=== PATIENT | female | born 1965 | race Caucasian/White ===

== ENCOUNTER 2018-03-28 19:53 | Observation (INO) ==
[2018-03-28 20:20] LABS: Bilirubin,Urine Negative (Negative); Blood,Urine Negative (Negative); Clarity,Urine Clear (Clear); Color,Urine Yellow (Yellow); Glucose,Urine (UA) Normal (Normal); Ketones,Urine Negative (Negative); Leukocyte Esterase,Urine Small (Negative); Nitrite,Urine Negative (Negative); Protein,Urine Negative (Neg-Trace); Urobilinogen,Urine Normal (Normal)
[2018-03-28 20:26] LABS: Bacteria,Urine Few per hpf (None-Few); Squamous Epithelial Cell,Urine Few per lpf (None-Few)
--- NOTE | 2018-03-28 20:38 | Emergency Department Note ---
Disposition Clinical Impression: Abdominal pain Qualifiers: Abdominal location: right upper quadrant Qualified Code(s): R10.11 - Right upper quadrant pain Disposition: Admitted As Inpatient Time of Disposition: 22:43 Abdominal Pain HPI - General Chief Complaint: ED Abdominal Pain Stated Complaint: Abd Pain Time Seen by Provider: 03/28/18 20:34 Source: patient, family Mode of arrival: ambulatory Limitations: no limitations Nursing Notes Reviewed: Yes Vital Signs Reviewed: Yes - History of Present Illness HPI Narrative: 53-year-old female with right upper quadrant pain present for the past week. This is colicky in nature and worse with fatty foods. She had some fried chicken this afternoon that really set her off, she has had constant severe right upper quadrant pain since that time. No vomiting. No fevers. She does not drink any alcohol. Only medications patient is taking are Hydrochlorothiazide, lisinopril, Flonase Pain Scale: 8 - Related Data Home Medications Medication Instructions Recorded Confirmed Lisinopril [Zestril] 10 mg PO DAILY 11/21/15 11/21/15 hydroCHLOROthiazide 25 mg PO DAILY 11/21/15 11/21/15 [Hydrochlorothiazide] Previous Rx's Medication Instructions Recorded HYDROcodone/Acet 5/325 mg [Hatch 1 tab PO TID #6 tab 11/21/15 5-325 mg] Allergies Allergy/AdvReac Type Severity Reaction Status Date / Time No Known Allergies Allergy Verified 11/21/15 05:59 Constitutional: Denies: fever, chills, weakness, weight change Eyes: Denies: eye pain, eye discharge, vision change ENT ED: Denies: ear pain, throat pain, dental pain, hearing loss, epistaxis, congestion, dysphagia Cardiovascular: Denies: chest pain, palpitations, dyspnea on exertion, edema, syncope Respiratory: Denies: cough, dyspnea, wheezes, hemoptysis, stridor Gastrointestinal: Reports: abdominal pain, nausea. Denies: vomiting, diarrhea, constipation Musculoskeletal: Denies: back pain, neck pain, arthralgia, myalgia Integumentary: Denies: rash, abrasion, lesions Neurological: Denies: headache, weakness, numbness, paresthesias, confusion, abnormal gait, vertigo Psychiatric: Denies: anxiety, depression, suicidal thoughts, homicidal thoughts , auditory hallucinations, visual hallucinations Allergic/Immunologic: Denies: facial swelling, urticaria Abdominal Pain PMH - Past Medical History Medical history: Reports: hypertension Female Surgical History: Reports: , Tonsillectomy, other [employer] history: Reports: bilateral tubal ligation Psychiatric history: Reports: no psych history - Social History Smoking status: Former smoker Alcohol use: Reports: none Drug use: Reports: none Physical Exam - General Limitations: no limitations General appearance: alert, in no apparent distress - Head Head exam: atraumatic, normocephalic, normal inspection - Chest Chest inspection: Present: normal inspection, symmetric chest wall rise - Respiratory Respiratory exam: Present: normal lung sounds bilaterally - Cardiovascular Cardiovascular exam: Present: regular rate, normal rhythm, normal heart sounds - Abdominal Exam Abdominal exam: Present: soft, tenderness. Absent: distention, guarding, rebound, rigidity Abdominal tenderness: Present: RUQ, severe - Extremities Exam Extremities exam: Present: normal inspection, full ROM. Absent: tenderness, pedal edema - Neurological Exam Neurological exam: Present: alert, oriented X3 - Psychiatric Psychiatric exam: Present: normal affect, normal mood - Skin Skin exam: Present: warm, dry, intact, normal color Course Course Narrative: Patient seen and examined at bedside, she is in stable condition - Reevaluation(s) Reevaluation #1: Discussed ultrasound results with patient. These are equivocal. CT abdomen/ pelvis pending. Hospitalist has accepted patient and I spoke with general surgery who will see the patient as well Vital Signs Temperature 97.6 F 03/28/18 20:03 Pulse Rate 72 03/28/18 20:03 Respiratory Rate 16 03/28/18 20:03 Blood Pressure 134/78 03/28/18 20:03 O2 Sat by Pulse Oximetry 98 03/28/18 20:03 Temperature 97.6 F 03/28/18 20:48 Pulse Rate 78 03/28/18 22:22 Respiratory Rate 15 03/28/18 22:22 Blood Pressure 151/81 03/28/18 22:22 O2 Sat by Pulse Oximetry 98 03/28/18 22:22 Oxygen Delivery Oxygen Delivery Room Air Abdominal Pain - MDM Narrative Medical decision making narrative: Exquisite tenderness to palpation right upper quadrant with positive Beaver sign as well. Will check an ultrasound and CT scan to evaluate the pancreas and basic labs as well - Lab Data Lab results reviewed: Yes I reviewed the patient's lab results. Result diagrams: 03/28/18 20:54 03/28/18 20:54 Lab Results 03/28/18 03/28/18 03/28/18 Range/Units 20:09 20:54 20:54 WBC 12.9 H (4.3-11.1) K/mcL RBC 4.52 (3.82-4.97) M/mcL Hgb 13.5 (11.5-15.4) g/dL Hct 39.9 (35.3-44.9) % MCV 88.3 (83.0-100.0) fL MCH 29.9 (28.0-33.3) pg MCHC 33.8 (31.6-35.5) g/dL RDW 14.0 (11.5-14.5) % Plt Count 293 (140-400) K/mcL MPV 11.1 (9.4-12.4) fL Immature Gran % 0.4 (0-4) % Seg Neutrophils % 77.7 % Lymphocytes % 15.5 % Monocytes % 4.9 % Eosinophils % 0.9 % Basophils % 0.6 % Neutrophils # 10.0 H (1.6-8.9) K/mcL Lymphocytes # 2.0 (0.6-4.6) K/mcL Monocytes # 0.6 (0.0-1.3) K/mcL Eosinophils # 0.1 (0.0-0.6) K/mcL Basophils # 0.1 (0.0-0.2) K/mcL Sodium 138 (136-145) mEq/L Potassium 3.5 (3.5-5.1) mEq/L Chloride 98 (98-107) mEq/L Carbon Dioxide 29 (23-29) mEq/L BUN 13 (6-20) mg/dL Creatinine 0.74 (0.60-1.20) mg/dL Est GFR ( Amer) > 60 (> 60) Est GFR (Non-Af Amer) > 60 (> 60) BUN/Creatinine Ratio 18 (6-26) Glucose 152 H (70-105) mg/dL Calculated Osmolality 289 (280-300) Lactic Acid (0.5-2.2) mmol/L Calcium 10.1 (8.6-10.3) mg/dL Total Bilirubin 1.9 H (0.3-1.0) mg/dL Direct Bilirubin 1.1 H (0.0-0.2) mg/dL Indirect Bilirubin 0.8 (0.0-1.2) mg/dL AST 230 H (13-39) Units/L ALT 203 H (7-52) Units/L Alkaline Phosphatase 217 H (34-104) Units/L Serum Total Protein 7.8 (6.4-8.9) g/dL Albumin 4.4 (3.5-5.7) g/dL Globulin 3.4 (2.4-3.5) g/dL Albumin/Globulin Ratio 1.3 (1.1-2.2) Amylase 23 L (29-103) Units/L Lipase 13 (11-82) Units/L Urine Color Yellow (Yellow) Urine Clarity Clear (Clear) Urine pH 7.0 (5.0-8.0) pH Units Ur Specific [place] 1.020 (1.010-1.025) Urine Protein Negative (Neg-Trace) mg/dL Urine Glucose (UA) Normal (Normal) mg/dL Urine Ketones Negative (Negative) mg/dL Urine Blood Negative (Negative) Urine Nitrite Negative (Negative) Urine Bilirubin Negative (Negative) Urine Urobilinogen Normal (Normal) mg/dL Ur Leukocyte Esterase Small H (Negative) Urine Microscopic WBC 5-15 H (0-3) per hpf Ur Squamous Epith Cells Few (None-Few) per lpf Urine Bacteria Few (None-Few) per hpf Ur Culture Indicated? YES A (NO) 03/28/18 Range/Units 20:56 WBC (4.3-11.1) K/mcL RBC (3.82-4.97) M/mcL Hgb (11.5-15.4) g/dL Hct (35.3-44.9) % MCV (83.0-100.0) fL MCH (28.0-33.3) pg MCHC (31.6-35.5) g/dL RDW (11.5-14.5) % Plt Count (140-400) K/mcL MPV (9.4-12.4) fL Immature Gran % (0-4) % Seg Neutrophils % % Lymphocytes % % Monocytes % % Eosinophils % % Basophils % % Neutrophils # (1.6-8.9) K/mcL Lymphocytes # (0.6-4.6) K/mcL Monocytes # (0.0-1.3) K/mcL Eosinophils # (0.0-0.6) K/mcL Basophils # (0.0-0.2) K/mcL Sodium (136-145) mEq/L Potassium (3.5-5.1) mEq/L Chloride (98-107) mEq/L Carbon Dioxide (23-29) mEq/L BUN (6-20) mg/dL Creatinine (0.60-1.20) mg/dL Est GFR ( Amer) (> 60) Est GFR (Non-Af Amer) (> 60) BUN/Creatinine Ratio (6-26) Glucose (70-105) mg/dL Calculated Osmolality (280-300) Lactic Acid 2.1 (0.5-2.2) mmol/L Calcium (8.6-10.3) mg/dL Total Bilirubin (0.3-1.0) mg/dL Direct Bilirubin (0.0-0.2) mg/dL Indirect Bilirubin (0.0-1.2) mg/dL AST (13-39) Units/L ALT (7-52) Units/L Alkaline Phosphatase (34-104) Units/L Serum Total Protein (6.4-8.9) g/dL Albumin (3.5-5.7) g/dL Globulin (2.4-3.5) g/dL Albumin/Globulin Ratio (1.1-2.2) Amylase (29-103) Units/L Lipase (11-82) Units/L Urine Color (Yellow) Urine Clarity (Clear) Urine pH (5.0-8.0) pH Units Ur Specific [place] (1.010-1.025) Urine Protein (Neg-Trace) mg/dL Urine Glucose (UA) (Normal) mg/dL Urine Ketones (Negative) mg/dL Urine Blood (Negative) Urine Nitrite (Negative) Urine Bilirubin (Negative) Urine Urobilinogen (Normal) mg/dL Ur Leukocyte Esterase (Negative) Urine Microscopic WBC (0-3) per hpf Ur Squamous Epith Cells (None-Few) per lpf Urine Bacteria (None-Few) per hpf Ur Culture Indicated? (NO) - Radiology Data Radiology results reviewed: Yes I reviewed the patient's radiology results. Attestation Statement - Attestation Attestation: Patient was seen with resident physician. I reviewed the history, physical, assessment and plan, and agree with the findings. I also personally evaluated this patient and had [id number] time with this patient. 53-year-old female presents with intermittent right upper quadrant abdominal pain for the last several weeks. This became consistent after meal today at approximately 2:00 in the afternoon. She said the pain was severe it as located in the mid epigastrium and the right upper quadrant. Very tender to palpation associate with nausea no vomiting no diarrhea. Denies fevers or chills. She still has her gallbladder or appendix. She says she has not had any abdominal surgeries to this point. Review of systems as above remained reviewed negative. Physical exam vital signs are stable. ENT is unremarkable. Heart and lungs are both normal. Abdomen is soft there is exquisite tenderness in the right upper quadrant with guarding no rigidity. Also tender in the midepigastric area I do not see much in the left upper quadrant and lower quadrants are nontender. Extremities are unremarkable. Neurologically she is intact. Skin no rashes. Psych normal. ED course we will check a CT scan to look at the pancreas but we will also get an ultrasound to make sure that were evaluating the gallbladder appropriately. With pain associated with the medial at certainly is concerning for gallbladder disease. She has not had anything to eat or drink since 3:00 this afternoon so we should be able to get a good study. Ultrasound showed gallstones with possible wall thickening and a suggestion correlate with clinical findings suggestive of inflammation. CT scan essentially confirmed these findings. Patient however had an elevated white blood cell count and elevated LFTs so the concern was that she was early in the development of cholecystitis. We contacted the hospitalist service agreed to accept the patient for admission and we also contacted the surgical service to help facilitate consultation on this patient for further evaluation treatment. Patient was given IV fluids and Toradol, she was nothing by mouth. She was admitted to the hospital. Agree with resident physician assessment and plan.
[2018-03-28] MEDS ORDERED: Ketorolac 15 MG/ML VIAL IVP ONE (21:03)
[2018-03-28 21:06] LABS: Basophils # 0.1 K/mcL (0.0-0.2); Basophils % 0.6 %; Eosinophils # 0.1 K/mcL (0.0-0.6); Eosinophils % 0.9 %; Hematocrit 39.9 % (35.3-44.9); Hemoglobin 13.5 g/dL (11.5-15.4); Immature Granulocytes % 0.4 % (0-4); Lymphocytes % 15.5 %; Mean Corpuscular HGB Conc 33.8 g/dL (31.6-35.5); Mean Corpuscular Hemoglobin 29.9 pg (28.0-33.3); Mean Corpuscular Volume 88.3 fL (83.0-100.0); Mean Platelet Volume 11.1 fL (9.4-12.4); Monocytes # 0.6 K/mcL (0.0-1.3); Monocytes % 4.9 %; Platelet Count 293 K/mcL (140-400); Red Blood Count 4.52 M/mcL (3.82-4.97); Segmented Neutrophils % 77.7 %
[2018-03-28 21:26] LABS: Alanine Aminotransferase 203 Units/L (7-52); Albumin 4.4 g/dL (3.5-5.7); Albumin/Globulin Ratio 1.3 (1.1-2.2); Alkaline Phosphatase 217 Units/L (34-104); Amylase 23 Units/L (29-103); Aspartate Amino Transferase 230 Units/L (13-39); BUN/Creatinine Ratio 18 (6-26); Bilirubin,Direct 1.1 mg/dL (0.0-0.2); Bilirubin,Indirect 0.8 mg/dL (0.0-1.2); Bilirubin,Total 1.9 mg/dL (0.3-1.0); Blood Urea Nitrogen 13 mg/dL (6-20); Calcium 10.1 mg/dL (8.6-10.3); Carbon Dioxide 29 mEq/L (23-29); Chloride 98 mEq/L (98-107); Globulin 3.4 g/dL (2.4-3.5); Glucose 152 mg/dL (70-105); Lipase 13 Units/L (11-82); Osmolality,Calculated 289 (280-300); Potassium 3.5 mEq/L (3.5-5.1); Sodium 138 mEq/L (136-145); Total Protein 7.8 g/dL (6.4-8.9); eGFR For African Americans > 60 (> 60); eGFR For Non-African Americans > 60 (> 60)
[2018-03-28] MEDS ORDERED: 0.9 % Sodium Chloride 1,000 ML IVC ONE (22:07)
[2018-03-28] MEDS ORDERED: Ondansetron 4 MG/2 ML VIAL IVP PRN (22:10)
[2018-03-28] MEDS ORDERED: Naloxone 0.4 MG/ML INJ IVP PRN (22:12)
[2018-03-28] MEDS ORDERED: Acetaminophen 325 MG TABLET PO PRN (22:12)
[2018-03-28 22:56] LABS: Prothrombin Time 11.2 Seconds (9.4-12.1)
--- NOTE | 2018-03-28 23:17 | Internal Med History&Physical ---
Date of Encounter: 03/28/18 Time of Encounter: 23:11 Internal Medicine - H&P: HPI Chief complaint: Abdominal pain Admitted From: Emergency Dept Plans for Post Hospital Care: Home History of present illness: Ms. Negrete is a 53 year old female with history of hypertension who presents to the ED with complaints of right upper quadrant pain that has been going on for about a week or so. Worse with food. It was worse today after she had fried chicken. Describes it as dull pain in the right upper quadrant with radiation to the gastric area. She reports subjective fevers. Feels nauseous. No vomiting. She had significant pain that she felt she was going to pass out a couple of times today. Her brought her to the ED where workup showed elevated liver function test and imaging studies including CT abdomen pelvis and abdominal ultrasound showed cholelithiasis but no evidence of acute cholecystitis. Surgery were contacted by the ET and recommended admission. The patient denies any headache, blurry vision, vomiting, chest pain, shortness of breath, diarrhea, constipation, urinary symptoms, or neurological symptoms. She says she had something similar like this about a couple years ago and was told that her gallbladder was the cause. Past Med Surg Social Fam HX - Past Medical History Medical history: hypertension Psychiatric history: no psych history - Past Surgical History Additional surgical history: ablasion - Social History Smoking Status: Former smoker Smokeless Tobacco Status: No Alcohol use: none Drug use: none Internal Medicine - H&P: Meds Lisinopril [Zestril] 10 mg PO DAILY 11/21/15 [History] hydroCHLOROthiazide [Hydrochlorothiazide] 25 mg PO DAILY 11/21/15 [History] 3 Allergy/AdvReac Type Severity Reaction Status Date / Time No Known Allergies Allergy Verified 11/21/15 05:59 All Systems PM: A 10-system review of systems was performed and is negative for pertinent findings except as documented above in the HPI. Review of systems: All systems reviewed are negative except for special above - Constitutional Vitals: Temp Pulse Resp BP Pulse Ox 97.6 F 86 14 141/88 98 03/28/18 20:48 03/28/18 23:06 03/28/18 23:06 03/28/18 23:06 03/28/18 23:06 Exam: GEN: NAD HEENT: AT, NC, No cyanosis, oral mucosa is moist, No JVD Lymphatics: No lymphadenoapthy Eyes: Extrocular muscles intact, anicteric CVS:RRR. S1, S2, No m/r/g RESP: CTAB ABD: Soft, right upper quadrant tenderness ND, +BS EXT: No edema, No rashes, 2+ DP NEURO: Nonfocal, CN II-XII intact, No focal motor or sensory deficits Psych: Cooperative, Not anxious or depressed Internal Med - H&P Results - Labs CBC & Chem 7: 03/28/18 20:54 03/28/18 20:54 - Assessment and plan (1) Biliary colic Current Visit: Yes Status: Acute Assessment and plan: Admit the patient hospitalist with a consult surgery. Nothing by mouth. Pain control. Antiemetics. IV fluids. Leukocytosis and subjective fevers was started on Zosyn. The highest scan has been ordered for tomorrow. (2) Leukocytosis Current Visit: Yes Status: Acute Assessment and plan: Possibly reactive versus infectious. Plan is as above. IV fluids and IV Zosyn have been started. Qualifiers: Leukocytosis type: unspecified Qualified Code(s): D72.829 - Elevated white blood cell count, unspecified (3) HTN (hypertension) Current Visit: Yes Status: Acute Assessment and plan: Resume home antihypertensives Qualifiers: Hypertension type: essential hypertension Qualified Code(s): I10 - Essential (primary) hypertension (4) DVT prophylaxis Current Visit: Yes Status: Acute Assessment and plan: Heparin subcutaneous - Time Spent With Patient Total time spent is greater than 50% in coordination of care (as documented) at patient's floor/unit and/or counseling patient:
[2018-03-28] MEDS: 0.9 % Sodium Chloride 1,000 ML IVC SCH (23:54)
[2018-03-29] MEDS: Piperacillin/Tazobactam 3.375 GM in 0.9 % Sodium Chloride Mini Bag 100 ML IVPB SCH ×3 (00:22→15:17)
[2018-03-29 04:37] LABS: Basophils # 0.1 K/mcL (0.0-0.2); Basophils % 0.8 %; Eosinophils # 0.1 K/mcL (0.0-0.6); Eosinophils % 0.6 %; Hematocrit 35.5 % (35.3-44.9); Immature Granulocytes % 0.4 % (0-4); Lymphocytes # 2.4 K/mcL (0.6-4.6); Lymphocytes % 25.2 %; Mean Corpuscular HGB Conc 33.2 g/dL (31.6-35.5); Mean Corpuscular Hemoglobin 29.1 pg (28.0-33.3); Mean Corpuscular Volume 87.4 fL (83.0-100.0); Mean Platelet Volume 11.1 fL (9.4-12.4); Monocytes # 0.5 K/mcL (0.0-1.3); Monocytes % 5.6 %; Neutrophils # 6.4 K/mcL (1.6-8.9); Platelet Count 245 K/mcL (140-400); Red Blood Count 4.06 M/mcL (3.82-4.97); Red Cell Distribution Width 14.1 % (11.5-14.5); Segmented Neutrophils % 67.4 %
[2018-03-29 04:39] LABS: Hemoglobin 11.8 g/dL (11.5-15.4)
[2018-03-29 04:43] LABS: Prothrombin Time 10.9 Seconds (9.4-12.1)
[2018-03-29 05:00] LABS: Alanine Aminotransferase 221 Units/L (7-52); Albumin 3.7 g/dL (3.5-5.7); Albumin/Globulin Ratio 1.4 (1.1-2.2); Alkaline Phosphatase 201 Units/L (34-104); Aspartate Amino Transferase 283 Units/L (13-39); BUN/Creatinine Ratio 19 (6-26); Blood Urea Nitrogen 12 mg/dL (6-20); Calcium 8.8 mg/dL (8.6-10.3); Carbon Dioxide 26 mEq/L (23-29); Chloride 106 mEq/L (98-107); Globulin 2.7 g/dL (2.4-3.5); Glucose 122 mg/dL (70-105); Osmolality,Calculated 291 (280-300); Potassium 3.5 mEq/L (3.5-5.1); Sodium 140 mEq/L (136-145); Total Protein 6.4 g/dL (6.4-8.9); eGFR For African Americans > 60 (> 60); eGFR For Non-African Americans > 60 (> 60)
[2018-03-29 05:11] LABS: Thyroid Stimulating Hormone 1.089 mcIU/mL (0.340-5.600)
[2018-03-29] MEDS: *HR* Heparin 5,000 UNIT/ML VIAL SQ SCH ×2 (05:49→12:49)
[2018-03-29] MEDS ORDERED: *HR* Morphine 2 MG/ML SYRINGE IVP PRN (06:27)
[2018-03-29] MEDS ORDERED: hydroCHLOROthiazide 25 MG TABLET PO SCH (09:00)
--- NOTE | 2018-03-29 09:26 | General Surgery Consult Note ---
<Julia Lerma - Last Filed: 03/29/18 09:35> Date of Encounter: 03/29/18 Time of Encounter: 08:50 Assessment and Plan (1) Cholelithiasis Current Visit: Yes Status: Acute Her hospital course thus far has included a normal white blood cell count (12.9> >9.4), Zosyn IV ATBX, a CT of the abdomen and pelvis which revealed cholelithiasis without obstruction, enlarged fatty liver, a right upper quadrant ultrasound which revealed a common bile duct measuring 6 mm, and she completed a hepatobiliary scan today which was unable to visualize the gallbladder. Plan: NPO MRCP (if positive will consult GI for likely ERCP) IVF and ATBX per primary team trend CBC, BMP, LFT and bili Hepatitis screening continue supportive care and discomfort management per the primary team we will continue to follow along with you Qualifiers: Cholelithiasis location: gallbladder Cholecystitis presence: without cholecystitis Biliary obstruction: without biliary obstruction Qualified Code(s): K80.20 - Calculus of gallbladder without cholecystitis without obstruction (2) Abdominal pain Current Visit: Yes Status: Acute See a/p plan above Qualifiers: Abdominal location: epigastric Qualified Code(s): R10.13 - Epigastric pain History of Present Illness Consult date: 03/28/18 (Dr. Mark Key) Reason for consult: gallstones Requesting physician: Zoltan Hawk History of present illness: Antoinette is a 53-year-old female with a past medical history of controlled essential hypertension, seasonal allergies, a surgical history of C- section (X3) tonsillectomy, and a uterine ablation approximately 7 years ago. She denies a smoking, illicit drug use, or alcohol history. She presented on 07/2018 with reports of abdominal discomfort in the right upper quadrant, increased indigestion, and nausea for one week. Surgery has been asked to evaluate this patient for right upper quadrant pain. Antoinette reports that for the last week she has had pain in the middle of her abdomen that radiated to the right and to her back. She describes this discomfort in 2 ways. The 1st is a continuous feeling of bloated, early satiety , and nausea. The 2nd is colicky type discomfort that would feels sharp, radiate around from her abdomen to her back, last for a couple hours, and resolve on its own. The colicky events were associated with increased nausea. She also notes that over the last couple days her urine has become rust colored but she denies painful urination, foul smell, or urinary frequency. She denies fever, chills, headache, dizziness, chest pain, or shortness of breath. She denies black, bloody, or tarry stool, changes in bowel habits, or constipation. Her hospital course thus far has included a normal white blood cell count, a CT of the abdomen and pelvis which revealed cholelithiasis without obstruction, enlarged fatty liver, a right upper quadrant ultrasound which revealed a common bile duct measuring 6 mm, and she completed a hepatobiliary scan today which was unable to visualize the gallbladder. She is also concerned that she ate at "[employer] a few weeks ago in [place] and they sent us a letter stating I should have a hepatitis A screening." Past Med Surg Social Fam HX - Past Medical History Source: patient Medical history: hypertension Psychiatric history: no psych history - Past Surgical History Surgical History: , other (Tonsillectomy, uterine ablation) Additional surgical history: ablasion, tonsillectomy - Social History Smoking Status: Former smoker Smokeless Tobacco Status: No Alcohol use: none Drug use: none - Family History Mother Hx Family Cardiac Disorders: Yes Father Hx Family Cancer: Yes Medications and Allergies Lisinopril [Zestril] 10 mg PO DAILY 11/21/15 [History] hydroCHLOROthiazide [Hydrochlorothiazide] 25 mg PO DAILY 11/21/15 [History] 3 Allergy/AdvReac Type Severity Reaction Status Date / Time No Known Allergies Allergy Verified 11/21/15 05:59 Review of Systems All systems PM: reviewed and no additional remarkable complaints except as stated All systems PM: The remainder of the systems were reviewed and are negative General Surgery Exam Initial Vital Signs Temp Pulse Resp BP Pulse Ox 97.6 F 72 16 134/78 98 03/28/18 20:03 03/28/18 20:03 03/28/18 20:03 03/28/18 20:03 03/28/18 20:03 VITAL SIGNS: Reviewed. See [facility] GENERAL: In no apparent distress. HEENT: Normocephalic, atraumatic, pupils are equal and reactive, extraocular motions intact, oropharynx is pink and moist, there is no neck adenopathy or JVD noted. Sclera mildly icteric CHEST/RESPIRATORY: The thorax is free from signs of trauma. Lung sounds: clear to auscultation, normal respiratory effort CARDIAC: Regular rate and rhythm. Normal S1 and S2, without murmurs, gallops, or rubs. VASCULAR: No Edema. 2+ peripheral pulses. ABDOMEN: soft, obese, hypoactive bowel sounds, right upper quadrant and epigastric tenderness. No masses appreciated. No evidence of trauma. MUSCULOSKELETAL: Good range of motion of all major joints. Extremities without clubbing, cyanosis or edema. NEUROLOGIC EXAM: Alert and oriented x 3. Speech normal. Follows commands. PSYCHIATRIC: Mood normal. SKIN: No rash or lesions. Exam Initial Vital Signs Temp Pulse Resp BP Pulse Ox 97.6 F 72 16 134/78 98 03/28/18 20:03 03/28/18 20:03 03/28/18 20:03 03/28/18 20:03 03/28/18 20:03 Results - Labs 03/29/18 04:18 03/29/18 04:18 Abnormal lab results Glucose 122 mg/dL (70-105) H 03/29/18 04:18 Total Bilirubin 2.0 mg/dL (0.3-1.0) H 03/29/18 04:18 Direct Bilirubin 1.1 mg/dL (0.0-0.2) H 03/28/18 20:54 AST 283 Units/L (13-39) H 03/29/18 04:18 ALT 221 Units/L (7-52) H 03/29/18 04:18 Alkaline Phosphatase 201 Units/L (34-104) H 03/29/18 04:18 Amylase 23 Units/L (29-103) L 03/28/18 20:54 Ur Leukocyte Esterase Small (Negative) H 03/28/18 20:09 Urine Microscopic WBC 5-15 per hpf (0-3) H 03/28/18 20:09 Ur Culture Indicated? YES (NO) A 03/28/18 20:09 Diabetes panel 03/29/18 Range/Units 04:18 Sodium 140 (136-145) mEq/L Potassium 3.5 (3.5-5.1) mEq/L Chloride 106 (98-107) mEq/L Carbon Dioxide 26 (23-29) mEq/L BUN 12 (6-20) mg/dL Creatinine 0.62 (0.60-1.20) mg/dL Glucose 122 H (70-105) mg/dL Calcium 8.8 (8.6-10.3) mg/dL AST 283 H (13-39) Units/L ALT 221 H (7-52) Units/L Alkaline Phosphatase 201 H (34-104) Units/L Albumin 3.7 (3.5-5.7) g/dL Thyroid panel 03/29/18 Range/Units 04:18 TSH 1.089 (0.340-5.600) mcIU/mL Calcium panel 03/29/18 Range/Units 04:18 Calcium 8.8 (8.6-10.3) mg/dL Albumin 3.7 (3.5-5.7) g/dL Pituitary panel 03/29/18 Range/Units 04:18 Sodium 140 (136-145) mEq/L Potassium 3.5 (3.5-5.1) mEq/L Chloride 106 (98-107) mEq/L Carbon Dioxide 26 (23-29) mEq/L BUN 12 (6-20) mg/dL Creatinine 0.62 (0.60-1.20) mg/dL Glucose 122 H (70-105) mg/dL Calcium 8.8 (8.6-10.3) mg/dL TSH 1.089 (0.340-5.600) mcIU/mL Adrenal panel 03/29/18 Range/Units 04:18 Sodium 140 (136-145) mEq/L Potassium 3.5 (3.5-5.1) mEq/L Chloride 106 (98-107) mEq/L Carbon Dioxide 26 (23-29) mEq/L BUN 12 (6-20) mg/dL Creatinine 0.62 (0.60-1.20) mg/dL Glucose 122 H (70-105) mg/dL Calcium 8.8 (8.6-10.3) mg/dL Total Bilirubin 2.0 H (0.3-1.0) mg/dL AST 283 H (13-39) Units/L ALT 221 H (7-52) Units/L Alkaline Phosphatase 201 H (34-104) Units/L Albumin 3.7 (3.5-5.7) g/dL All other labs normal. - Imaging CT scan - abdomen: report reviewed CT scan - pelvis: report reviewed US - abdomen: report reviewed Additional studies: HIDA scan reviewed Consult Discharge Plan - Plan Referrals: Mariaa Olivas, MEDICAL TRANSCRIPTION EDITOR [Primary Care Provider] - <[email or web address] M - Last Filed: 03/30/18 09:21> Date of Encounter: 03/29/18 Review of Systems All systems PM: The remainder of the systems were reviewed and are negative General Surgery Exam Initial Vital Signs Temp Pulse Resp BP Pulse Ox 97.6 F 72 16 134/78 98 03/28/18 20:03 03/28/18 20:03 03/28/18 20:03 03/28/18 20:03 03/28/18 20:03 Exam Initial Vital Signs Temp Pulse Resp BP Pulse Ox 97.6 F 72 16 134/78 98 03/28/18 20:03 03/28/18 20:03 03/28/18 20:03 03/28/18 20:03 03/28/18 20:03 Results - Labs 03/30/18 02:46 03/30/18 02:46 Abnormal lab results RBC 3.81 M/mcL (3.82-4.97) L 03/30/18 02:46 Hgb 11.3 g/dL (11.5-15.4) L 03/30/18 02:46 Hct 33.9 % (35.3-44.9) L 03/30/18 02:46 RDW 14.6 % (11.5-14.5) H 03/30/18 02:46 Potassium 3.1 mEq/L (3.5-5.1) L 03/30/18 02:46 Chloride 109 mEq/L (98-107) H 03/30/18 02:46 Glucose 107 mg/dL (70-105) H 03/30/18 02:46 Calcium 8.3 mg/dL (8.6-10.3) L 03/30/18 02:46 Total Bilirubin 1.1 mg/dL (0.3-1.0) H 03/30/18 02:46 Direct Bilirubin 0.3 mg/dL (0.0-0.2) H 03/30/18 02:46 AST 234 Units/L (13-39) H 03/30/18 02:46 ALT 250 Units/L (7-52) H 03/30/18 02:46 Alkaline Phosphatase 209 Units/L (34-104) H 03/30/18 02:46 Serum Total Protein 5.9 g/dL (6.4-8.9) L 03/30/18 02:46 Albumin 3.4 g/dL (3.5-5.7) L 03/30/18 02:46 Amylase 18 Units/L (29-103) L 03/30/18 02:46 Ur Leukocyte Esterase Small (Negative) H 03/28/18 20:09 Urine Microscopic WBC 5-15 per hpf (0-3) H 03/28/18 20:09 Ur Culture Indicated? YES (NO) A 03/28/18 20:09 Diabetes panel 03/30/18 Range/Units 02:46 Sodium 139 (136-145) mEq/L Potassium 3.1 L (3.5-5.1) mEq/L Chloride 109 H (98-107) mEq/L Carbon Dioxide 23 (23-29) mEq/L BUN 10 (6-20) mg/dL Creatinine 0.65 (0.60-1.20) mg/dL Glucose 107 H (70-105) mg/dL Calcium 8.3 L (8.6-10.3) mg/dL AST 234 H (13-39) Units/L ALT 250 H (7-52) Units/L Alkaline Phosphatase 209 H (34-104) Units/L Albumin 3.4 L (3.5-5.7) g/dL Calcium panel 03/30/18 Range/Units 02:46 Calcium 8.3 L (8.6-10.3) mg/dL Albumin 3.4 L (3.5-5.7) g/dL Pituitary panel 03/30/18 Range/Units 02:46 Sodium 139 (136-145) mEq/L Potassium 3.1 L (3.5-5.1) mEq/L Chloride 109 H (98-107) mEq/L Carbon Dioxide 23 (23-29) mEq/L BUN 10 (6-20) mg/dL Creatinine 0.65 (0.60-1.20) mg/dL Glucose 107 H (70-105) mg/dL Calcium 8.3 L (8.6-10.3) mg/dL Adrenal panel 03/29/18 03/30/18 Range/Units 09:24 02:46 Sodium 139 (136-145) mEq/L Potassium 3.1 L (3.5-5.1) mEq/L Chloride 109 H (98-107) mEq/L Carbon Dioxide 23 (23-29) mEq/L BUN 10 (6-20) mg/dL Creatinine 0.65 (0.60-1.20) mg/dL Glucose 107 H (70-105) mg/dL Calcium 8.3 L (8.6-10.3) mg/dL Total Bilirubin 2.6 H 1.1 H (0.3-1.0) mg/dL AST 234 H (13-39) Units/L ALT 250 H (7-52) Units/L Alkaline Phosphatase 209 H (34-104) Units/L Albumin 3.4 L (3.5-5.7) g/dL All other labs normal. - Attending Attestation I have personally performed a face to face evaluation on this patient. I have reviewed and agree with the care plan. History and Exam by me shows: I reviewed the above assessment and evaluation and agree with the above plan. Patient with a several day history of right upper quadrant abdominal pain. Tenderness to palpation and noted an abnormal laboratory studies with a mildly elevated bilirubin level. The level was repeated and the bilirubin was noted to be 2.9. Ultrasound study suggests acute cholecystitis. I agree with gastroenterology consultation to see whether or not there is a need for an ERCP. We will tentatively consider a laparoscopic cholecystectomy within the next 24-48 hours. Discussed with the patient and she agrees to the above plan.
[2018-03-29 09:59] LABS: Bilirubin,Direct 1.8 mg/dL (0.0-0.2); Bilirubin,Indirect 0.8 mg/dL (0.0-1.2); Bilirubin,Total 2.6 mg/dL (0.3-1.0)
--- NOTE | 2018-03-29 10:51 | Internal Med Progress Note ---
<Jose L Vazquez - Last Filed: 03/29/18 16:23> Date of Encounter: 03/29/18 Time of Encounter: 09:45 - Assessment and plan (1) Biliary colic Current Visit: Yes Status: Acute Assessment and plan: Leukocytosis and subjective fevers was started on Zosyn. Surgery and GI consulted for abnormal findings. Patient NPO today for testing (confirmed with surg and GI okay to start clear liquids after testing done today and plan for NPO again at midnight). Control Pain control, Antiemetics, IV fluids. Plan for choleocytectomy while inpatient, surgery waiting to confirm plan with GI and possibly complete ERCP prior. Abd US: with sonographic Beaver's sign. Common bile duct is upper limits of normal in caliber measuring 6 mm. Tiny stone in GB. Abd/pelvic CT:Cholelithiasis without cholecystitis. Hepatomegaly with steatosis. abdominal MRI: Distended gallbladder with cholelithiasis, gallbladder wall thickening and extensive pericholecystic fluid. Findings are highly suggestive of acute cholecystitis. (2) HTN (hypertension) Current Visit: Yes Status: Chronic Assessment and plan: Resume home antihypertensives, Last BP was 128/79. Qualifiers: Hypertension type: essential hypertension Qualified Code(s): I10 - Essential (primary) hypertension (3) Leukocytosis Current Visit: Yes Status: Resolved Assessment and plan: Resolved. Possibly reactive versus infectious. Plan is as above. IV fluids and IV Zosyn have been started. Qualifiers: Leukocytosis type: unspecified Qualified Code(s): D72.829 - Elevated white blood cell count, unspecified (4) DVT prophylaxis Current Visit: Yes Status: Acute Assessment and plan: Heparin subcutaneous - Time Spent With Patient Total time spent is greater than 50% in coordination of care (as documented) at patient's floor/unit and/or counseling patient: - Subjective Interval history: Patient seen and examined in bed. No acute distress. Notes continued abdominal pain, though noted to be more epigastric and less severe than yesterday's RUQ pain. No nausea, vomiting, shortness of breath, or chest pain. Currently NPO for testing, patient admits to thirst. - Constitutional Vitals: Temp Pulse Resp BP Pulse Ox 98.1 F 77 16 130/81 100 03/29/18 10:27 03/29/18 10:27 03/29/18 10:27 03/29/18 10:27 03/29/18 10:27 General appearance: Present: cooperative, A&O X 3, no acute distress, answers questions appropriately - Head Head exam: Present: atraumatic, normal inspection, normocephalic - Eye Eye exam: Present: EOMI, normal appearance, sclera anicteric - ENT ENT exam: Present: mucous membranes moist - Neck Neck exam general surgery: Present: full ROM, normal inspection - Respiratory Respiratory exam: Present: CTAB. Absent: respiratory distress, rhonchi, stridor , wheezes - Cardiovascular Cardiovascular exam: Present: RRR, +S1, +S2. Absent: gallop, rubs - GI/Abdominal GI/Abdominal exam: Present: soft, tenderness (mild epigastric tenderness on palpation, denies flank or back pain.). Absent: distended, guarding - Extremities Exam Extremities exam: Present: normal inspection, warm. Absent: pedal edema, tenderness - Neurological Exam Neurological exam: Present: alert, oriented X3, no focal deficits. Absent: facial droop, speech deficit - Psychiatric Psychiatric exam: Present: normal affect, normal mood - Skin Skin exam: Present: intact, normal color, warm. Absent: rash Internal Medicine: Result - Labs CBC & Chem 7: 03/29/18 04:18 03/29/18 04:18 Labs: Short CBC 03/29/18 Range/Units 04:18 WBC 9.4 (4.3-11.1) K/mcL Hgb 11.8 D (11.5-15.4) g/dL Hct 35.5 (35.3-44.9) % Plt Count 245 (140-400) K/mcL Neutrophils # 6.4 (1.6-8.9) K/mcL BMP 03/29/18 04:18 Sodium 140 Potassium 3.5 Chloride 106 Carbon Dioxide 26 BUN 12 Creatinine 0.62 Glucose 122 H Calcium 8.8 Liver Function 03/29/18 03/29/18 Range/Units 04:18 09:24 Total Bilirubin 2.0 H 2.6 H (0.3-1.0) mg/dL Direct Bilirubin 1.8 H (0.0-0.2) mg/dL AST 283 H (13-39) Units/L ALT 221 H (7-52) Units/L Alkaline Phosphatase 201 H (34-104) Units/L Albumin 3.7 (3.5-5.7) g/dL - ABG Interpretation ABG results: PT/INR, D-dimer PT 10.9 Seconds (9.4-12.1) 03/29/18 04:18 Consult Discharge Plan - Plan Referrals: Mariaa Olivas, DEVELOPMENT ENGINEER [Primary Care Provider] - <[email or web address] - Last Filed: 03/29/18 16:52> Date of Encounter: 03/29/18 - Assessment and plan (1) Biliary colic Current Visit: Yes Status: Acute (2) HTN (hypertension) Current Visit: Yes Status: Chronic Qualifiers: Hypertension type: essential hypertension Qualified Code(s): I10 - Essential (primary) hypertension (3) Leukocytosis Current Visit: Yes Status: Resolved Qualifiers: Leukocytosis type: unspecified Qualified Code(s): D72.829 - Elevated white blood cell count, unspecified (4) DVT prophylaxis Current Visit: Yes Status: Acute - Time Spent With Patient Total time spent is greater than 50% in coordination of care (as documented) at patient's floor/unit and/or counseling patient: - Constitutional Vitals: Temp Pulse Resp BP Pulse Ox 98 F 80 16 128/79 99 03/29/18 15:28 03/29/18 15:28 03/29/18 15:28 03/29/18 15:28 03/29/18 15:28 Internal Medicine: Result - Labs CBC & Chem 7: 03/29/18 04:18 03/29/18 04:18 Labs: Short CBC 03/29/18 Range/Units 04:18 WBC 9.4 (4.3-11.1) K/mcL Hgb 11.8 D (11.5-15.4) g/dL Hct 35.5 (35.3-44.9) % Plt Count 245 (140-400) K/mcL Neutrophils # 6.4 (1.6-8.9) K/mcL BMP 03/29/18 04:18 Sodium 140 Potassium 3.5 Chloride 106 Carbon Dioxide 26 BUN 12 Creatinine 0.62 Glucose 122 H Calcium 8.8 Liver Function 03/29/18 03/29/18 Range/Units 04:18 09:24 Total Bilirubin 2.0 H 2.6 H (0.3-1.0) mg/dL Direct Bilirubin 1.8 H (0.0-0.2) mg/dL AST 283 H (13-39) Units/L ALT 221 H (7-52) Units/L Alkaline Phosphatase 201 H (34-104) Units/L Albumin 3.7 (3.5-5.7) g/dL - ABG Interpretation ABG results: PT/INR, D-dimer PT 10.9 Seconds (9.4-12.1) 03/29/18 04:18 - Impressions Impressions Abdomen MRI 03/29/18 09:32 IMPRESSION: Distended gallbladder with cholelithiasis, gallbladder wall thickening and extensive pericholecystic fluid. Findings are highly suggestive of acute cholecystitis. No evidence of biliary or pancreatic ductal abnormality. No evidence of choledocholithiasis. The findings were sent to the Radiology Results Communication [facility] at 2:06 pm on 03/29/2018to be communicated to a licensed caregiver. D/ / 03/29/2018 14:35:50 Jerry Lindsey MD / lilia Interpreting Provider: Jerry Lindsey MD - Attending Attestation I examined this patient and my medical decision-making was reviewed with the Resident Physician Dr. Vazquez. I agree with the documented findings, disposition and treatment plan as described except to the extent set forth below. Ms. Negrete is a 53 year old female with history of hypertension who presented to the ED with complaints of right upper quadrant pain that has been going on for about a week or so. Worse with food. CT abdomen pelvis and abdominal ultrasound showed cholelithiasis but no evidence of acute cholecystitis. Had HIDA scan now. Pain is better now. Gen: A, A, O x 3 Chest: Diminished BS b/l Abd: Soft, RUQ tenderness a/p 1. Acute cholecystitis 2. Obstructive Jaundice 3. Cholelithiasis Surgery on board.. May need Cholecystectomy reviewed MRI of Abd showed cholecystitis .. No evidence of ductal dilation However surgery wanted GI clearance GI consulted IVF NPO
[2018-03-29 10:59] LABS: Hepatitis A Antibody IgM Nonreactive (Nonreactive); Hepatitis B Core IgM Nonreactive (Nonreactive); Hepatitis B Surface Antigen Nonreactive (Nonreactive)
[2018-03-29] MEDS: 0.9 % Sodium Chloride 1,000 ML IVC SCH ×2 (11:46→14:05)
[2018-03-29 14:50] LABS: Hepatitis C Virus Antibody Nonreactive (Nonreactive)
[2018-03-29] MEDS ORDERED: OXYCODONE Oral CONC 10 MG/0.5 ML ORAL.SYG SL PRN ×2 (15:12)
[2018-03-29] MEDS ORDERED: Ketorolac 15 MG/ML VIAL IVP PRN (15:12)
--- NOTE | 2018-03-29 21:14 | Anesthesia Evaluation PreOp ---
Date of Encounter: 03/29/18 Time of Encounter: 21:12 - Past History Planned Operation: Lap Cholecystectomy Cardiac History: HTN Pulmonary History: Former smoker ESTIMATE CLERK History: Denies Any Significant HX Other Medical History: Denies Any Significant HX Anesthesia History: No Prior Anesthetic Complications, Past Anesthesia (C- section (X3) tonsillectomy, uterine ablation) Alcohol Use: none Drug use: none Medications and Allergies Lisinopril [Zestril] 10 mg PO DAILY 11/21/15 [History] hydroCHLOROthiazide [Hydrochlorothiazide] 25 mg PO DAILY 11/21/15 [History] 3 Allergy/AdvReac Type Severity Reaction Status Date / Time No Known Allergies Allergy Verified 11/21/15 05:59 - Meds/Allergy Pre-op Review Medications Reviewed: Yes Allergies Reviewed: Yes Beta Blockers on Current Med List: No Anesthesia Results - Labs 03/29/18 04:18 03/29/18 04:18 Anesthesia Exam Vital Signs/O2 Sat, Most Current Temp Pulse Resp BP Pulse Ox 98.4 F 101 17 120/81 91 03/29/18 20:30 03/29/18 20:30 03/29/18 20:30 03/29/18 20:30 03/29/18 20:30 Weight: 92kg NPO (# of Hours): >8 - HEENT Pupil (Motor): Pupils equal, EOMI Mallampati: III Oral Opening: Greater than 3 - ESTIMATE CLERK LOC: Oriented ESTIMATE CLERK Motor: Normal RUE, Normal LUE, Normal RLE, Normal LLE, Normal Face ESTIMATE CLERK Sensory: Normal: RUE, LUE, RLE, LLE, Face - Cardiac Rhythm: Regular - Pulmonary Breath Sounds: bilateral Clear Respiratory Effort: Symmetrical Anesthesia Assess/Plan ASA Score: 2 Modified Henlawson Scale for Level of Consciousness: Cooperative, oriented, and tranquil Anesthetic Plan: General Monitoring Plan: Standard Monitors Recovery Plan: PACU
[2018-03-30] MEDS: *HR* Heparin 5,000 UNIT/ML VIAL SQ SCH ×4 (00:12→20:34)
[2018-03-30] MEDS: Piperacillin/Tazobactam 3.375 GM in 0.9 % Sodium Chloride Mini Bag 100 ML IVPB SCH ×2 (00:59→20:00)
[2018-03-30] MEDS: 0.9 % Sodium Chloride 1,000 ML IVC SCH ×4 (01:00→18:43)
[2018-03-30 03:27] LABS: Basophils # 0.1 K/mcL (0.0-0.2); Basophils % 1.1 %; Eosinophils # 0.4 K/mcL (0.0-0.6); Eosinophils % 4.8 %; Hematocrit 33.9 % (35.3-44.9); Hemoglobin 11.3 g/dL (11.5-15.4); Immature Granulocytes % 0.4 % (0-4); Lymphocytes # 2.8 K/mcL (0.6-4.6); Lymphocytes % 37.5 %; Mean Corpuscular HGB Conc 33.3 g/dL (31.6-35.5); Mean Corpuscular Hemoglobin 29.7 pg (28.0-33.3); Mean Platelet Volume 11.3 fL (9.4-12.4); Monocytes # 0.6 K/mcL (0.0-1.3); Monocytes % 7.8 %; Neutrophils # 3.6 K/mcL (1.6-8.9); Platelet Count 231 K/mcL (140-400); Red Blood Count 3.81 M/mcL (3.82-4.97); Red Cell Distribution Width 14.6 % (11.5-14.5); Segmented Neutrophils % 48.4 %
[2018-03-30 03:35] LABS: Alanine Aminotransferase 250 Units/L (7-52); Albumin 3.4 g/dL (3.5-5.7); Albumin/Globulin Ratio 1.4 (1.1-2.2); Alkaline Phosphatase 209 Units/L (34-104); Amylase 18 Units/L (29-103); Aspartate Amino Transferase 234 Units/L (13-39); BUN/Creatinine Ratio 15 (6-26); Bilirubin,Direct 0.3 mg/dL (0.0-0.2); Bilirubin,Indirect 0.8 mg/dL (0.0-1.2); Bilirubin,Total 1.1 mg/dL (0.3-1.0); Blood Urea Nitrogen 10 mg/dL (6-20); Calcium 8.3 mg/dL (8.6-10.3); Carbon Dioxide 23 mEq/L (23-29); Chloride 109 mEq/L (98-107); Globulin 2.5 g/dL (2.4-3.5); Glucose 107 mg/dL (70-105); Lipase 12 Units/L (11-82); Osmolality,Calculated 288 (280-300); Potassium 3.1 mEq/L (3.5-5.1); Sodium 139 mEq/L (136-145); Total Protein 5.9 g/dL (6.4-8.9); eGFR For African Americans > 60 (> 60); eGFR For Non-African Americans > 60 (> 60)
[2018-03-30] MEDS ORDERED: Potassium Chloride 20 MEQ, Lidocaine 1% 2 ML in D5% in Water 250 ML IVPB ONE (08:11)
--- NOTE | 2018-03-30 10:35 | Internal Med Progress Note ---
<Jose L Vazquez - Last Filed: 03/30/18 10:46> Date of Encounter: 03/30/18 Time of Encounter: 09:00 - Assessment and plan (1) Biliary colic Current Visit: Yes Status: Acute Assessment and plan: Patient notes pain improved. Labs (bili, AST, ALT, alk phos) are improving. Decision to undergo ERCP will be left up to GI/surgery. Plan for Choleocystectomy per Surgery. Patient currently NPO. Abd US: with sonographic Beaver's sign. Common bile duct is upper limits of normal in caliber measuring 6 mm. Tiny stone in GB. Abd/pelvic CT:Cholelithiasis without cholecystitis. Hepatomegaly with steatosis. abdominal MRI: Distended gallbladder with cholelithiasis, gallbladder wall thickening and extensive pericholecystic fluid. Findings are highly suggestive of acute cholecystitis. (2) HTN (hypertension) Current Visit: Yes Status: Chronic Assessment and plan: Resume home antihypertensives, Last BP was 120/65. Qualifiers: Hypertension type: essential hypertension Qualified Code(s): I10 - Essential (primary) hypertension (3) Leukocytosis Current Visit: Yes Status: Resolved Assessment and plan: Resolved. Possibly reactive versus infectious. Plan is as above. IV fluids and IV Zosyn have been started. Qualifiers: Leukocytosis type: unspecified Qualified Code(s): D72.829 - Elevated white blood cell count, unspecified (4) DVT prophylaxis Current Visit: Yes Status: Acute Assessment and plan: Heparin subcutaneous (5) Cholelithiasis Current Visit: Yes Status: Acute Assessment and plan: See plan above. Possible surgery today. Qualifiers: Cholelithiasis location: gallbladder Cholecystitis presence: without cholecystitis Biliary obstruction: without biliary obstruction Qualified Code(s): K80.20 - Calculus of gallbladder without cholecystitis without obstruction - Time Spent With Patient Total time spent is greater than 50% in coordination of care (as documented) at patient's floor/unit and/or counseling patient: - Subjective Interval history: Patient seen and examined in bed. No acute distress. Notes improved abdominal pain (only with palpation). No nausea, vomiting, shortness of breath, or chest pain. Currently NPO for possible surgery today. This morning patient states she hasn't talked to surgery to confirm surgery. - Constitutional Vitals: Temp Pulse Resp BP Pulse Ox 97.6 F 65 18 117/77 98 03/30/18 06:55 03/30/18 06:55 03/30/18 06:55 03/30/18 06:55 03/30/18 06:55 General appearance: Present: cooperative, A&O X 3, no acute distress, answers questions appropriately - Head Head exam: Present: atraumatic, normal inspection, normocephalic - Eye Eye exam: Present: EOMI, normal appearance, sclera anicteric - ENT ENT exam: Present: mucous membranes moist - Neck Neck exam general surgery: Present: full ROM, normal inspection - Respiratory Respiratory exam: Present: CTAB. Absent: respiratory distress, rhonchi, stridor , wheezes - Cardiovascular Cardiovascular exam: Present: RRR, +S1, +S2 - GI/Abdominal GI/Abdominal exam: Present: normal bowel sounds, soft, tenderness (mild right sided tenderness to palpation). Absent: distended, guarding - Neurological Exam Neurological exam: Present: alert, oriented X3, no focal deficits. Absent: speech deficit - Psychiatric Psychiatric exam: Present: normal affect, normal mood Internal Medicine: Result - Labs CBC & Chem 7: 03/30/18 02:46 03/30/18 02:46 Labs: Short CBC 03/30/18 Range/Units 02:46 WBC 7.5 (4.3-11.1) K/mcL Hgb 11.3 L (11.5-15.4) g/dL Hct 33.9 L (35.3-44.9) % Plt Count 231 (140-400) K/mcL Neutrophils # 3.6 (1.6-8.9) K/mcL BMP 03/30/18 02:46 Sodium 139 Potassium 3.1 L Chloride 109 H Carbon Dioxide 23 BUN 10 Creatinine 0.65 Glucose 107 H Calcium 8.3 L Liver Function 03/30/18 Range/Units 02:46 Total Bilirubin 1.1 H (0.3-1.0) mg/dL Direct Bilirubin 0.3 H (0.0-0.2) mg/dL AST 234 H (13-39) Units/L ALT 250 H (7-52) Units/L Alkaline Phosphatase 209 H (34-104) Units/L Albumin 3.4 L (3.5-5.7) g/dL - ABG Interpretation ABG results: PT/INR, D-dimer PT 10.9 Seconds (9.4-12.1) 03/29/18 04:18 - Impressions Impressions Abdomen MRI 03/29/18 09:32 IMPRESSION: Distended gallbladder with cholelithiasis, gallbladder wall thickening and extensive pericholecystic fluid. Findings are highly suggestive of acute cholecystitis. No evidence of biliary or pancreatic ductal abnormality. No evidence of choledocholithiasis. The findings were sent to the Radiology Results Communication [facility] at 2:06 pm on 03/29/2018to be communicated to a licensed caregiver. D/ / 03/29/2018 14:35:50 Jerry Lindsey MD / lilia Interpreting Provider: Jerry Lindsey MD Consult Discharge Plan - Plan Referrals: Mariaa Olivas, THEATER TEACHER [Primary Care Provider] - <Alana Cavazos - Last Filed: 03/30/18 13:47> Date of Encounter: 03/30/18 - Assessment and plan (1) Biliary colic Current Visit: Yes Status: Acute (2) HTN (hypertension) Current Visit: Yes Status: Chronic Qualifiers: Hypertension type: essential hypertension Qualified Code(s): I10 - Essential (primary) hypertension (3) Leukocytosis Current Visit: Yes Status: Resolved Qualifiers: Leukocytosis type: unspecified Qualified Code(s): D72.829 - Elevated white blood cell count, unspecified (4) DVT prophylaxis Current Visit: Yes Status: Acute (5) Cholelithiasis Current Visit: Yes Status: Acute Qualifiers: Cholelithiasis location: gallbladder Cholecystitis presence: without cholecystitis Biliary obstruction: without biliary obstruction Qualified Code(s): K80.20 - Calculus of gallbladder without cholecystitis without obstruction - Time Spent With Patient Total time spent is greater than 50% in coordination of care (as documented) at patient's floor/unit and/or counseling patient: - Constitutional Vitals: Temp Pulse Resp BP Pulse Ox 97.7 F 82 16 120/65 97 03/30/18 10:47 03/30/18 10:47 03/30/18 10:47 03/30/18 10:47 03/30/18 10:47 Internal Medicine: Result - Labs CBC & Chem 7: 06/12/18 02:46 03/30/18 02:46 Labs: Short CBC 03/30/18 Range/Units 02:46 WBC 7.5 (4.3-11.1) K/mcL Hgb 11.3 L (11.5-15.4) g/dL Hct 33.9 L (35.3-44.9) % Plt Count 231 (140-400) K/mcL Neutrophils # 3.6 (1.6-8.9) K/mcL BMP 03/30/18 02:46 Sodium 139 Potassium 3.1 L Chloride 109 H Carbon Dioxide 23 BUN 10 Creatinine 0.65 Glucose 107 H Calcium 8.3 L Liver Function 03/30/18 Range/Units 02:46 Total Bilirubin 1.1 H (0.3-1.0) mg/dL Direct Bilirubin 0.3 H (0.0-0.2) mg/dL AST 234 H (13-39) Units/L ALT 250 H (7-52) Units/L Alkaline Phosphatase 209 H (34-104) Units/L Albumin 3.4 L (3.5-5.7) g/dL - ABG Interpretation ABG results: PT/INR, D-dimer PT 10.9 Seconds (9.4-12.1) 03/29/18 04:18 - Impressions Impressions Abdomen MRI 03/29/18 09:32 IMPRESSION: Distended gallbladder with cholelithiasis, gallbladder wall thickening and extensive pericholecystic fluid. Findings are highly suggestive of acute cholecystitis. No evidence of biliary or pancreatic ductal abnormality. No evidence of choledocholithiasis. The findings were sent to the Radiology Results Communication Center at 2:06 pm on 03/29/2018to be communicated to a licensed caregiver. D/ / 03/29/2018 14:35:50 Jerry Lindsey MD / lilia Interpreting Provider: Jerry Lindsey MD - Attending Attestation I examined this patient and my medical decision-making was reviewed with the Resident Physician Dr. Vazquez. I agree with the documented findings, disposition and treatment plan as described except to the extent set forth below. Ms. Negrete is a 53 year old female with history of hypertension who presented to the ED with complaints of right upper quadrant pain that has been going on for about a week or so. Worse with food. CT abdomen pelvis and abdominal ultrasound showed cholelithiasis but no evidence of acute cholecystitis. Had HIDA scan now. Pain is better now. Gen: A, A, O x 3 Chest: Diminished BS b/l Abd: Soft, RUQ tenderness a/p 1. Acute cholecystitis 2. Obstructive Jaundice 3. Cholelithiasis Surgery on board.. scheduled for Cholecystectomy later today reviewed MRI of Abd showed cholecystitis .. No evidence of ductal dilation IVF NPO
--- NOTE | 2018-03-30 10:50 | Event Note ---
Date of Encounter: 03/30/18 Time of Encounter: 10:49 Updated patient reason: expect that she has passed the obstructing stone given that her laboratory studies have improved. We will plan for surgical intervention (laparoscopic cholecystectomy) in the next 24 to 48 hours. Recommendations, risks, and benefits were previously reviewed with patient and a signed consent has been placed on the hard chart.
--- NOTE | 2018-03-30 11:41 | Gastroenterology Consult Note ---
Date of Encounter: 03/30/18 Time of Encounter: 10:20 - Assessment and plan (1) Abdominal pain Current Visit: Yes Status: Acute Assessment and plan: RUQ US showed cholelithiasis, fatty liver, and boderline caliber of the common duct at 6mm. CT A/P with cholelithiasis without cholecystitis and hepatomegaly with steatosis. HIDA scan with no excretion from the liver by end of exam which could be due to obstruction or hepatic dysfunction. MRCP shows distended gallbladder with cholelithiasis, gallbladder wall thickening and extensive pericholecystic fluid, no evidence of choledocholithiasis, CBD 4mm, severe steatosis. No indication for ERCP at this time. Labs improving. Recommend gallbladder surgery with IOC. Qualifiers: Abdominal location: epigastric Qualified Code(s): R10.13 - Epigastric pain (2) Biliary colic Current Visit: Yes Status: Acute (3) Cholelithiasis Current Visit: Yes Status: Acute Qualifiers: Cholelithiasis location: gallbladder Cholecystitis presence: without cholecystitis Biliary obstruction: without biliary obstruction Qualified Code(s): K80.20 - Calculus of gallbladder without cholecystitis without obstruction - Time Spent With Patient Total time spent is greater than 50% in coordination of care (as documented) at patient's floor/unit and/or counseling patient: GI History of Present Illness - Data of Consult Patient: new to practice Consult date: 03/30/18 Requesting Physician: Alana Cavazos MD - Consult Narrative Reason for consult: RUQ pain History of present illness: Ms. Negrete is a 53 year old female with PMHx of HTN who presented to the ED with complaints of RUQ pain that is worsened with food, which started about a week prior to admission. She describes it as dull pain in the right upper quadrant with radiation to the gastric area. She complains of nausea but denies vomiting. On admission liver function tests were elevated. Total bili on admission 1.9 and peaked at 2.6 on 03/29, today TB 1.1. RUQ US showed cholelithiasis, fatty liver, and boderline caliber of the common duct at 6mm. CT A/P with cholelithiasis without cholecystitis and hepatomegaly with steatosis. HIDA scan with no excretion from the liver by end of exam which could be due to obstruction or hepatic dysfunction. MRCP shows distended gallbladder with cholelithiasis, gallbladder wall thickening and extensive pericholecystic fluid, no evidence of choledocholithiasis, CBD 4mm, severe steatosis. Procedures: None NSAIDs: None Anticoagulation: None Past Med Surg Social Fam HX - Past Medical History Medical history: hypertension Psychiatric history: no psych history - Past Surgical History Surgical History: , other (Tonsillectomy, uterine ablation) Additional surgical history: ablasion, tonsillectomy - Social History Smoking Status: Former smoker Smokeless Tobacco Status: No Alcohol use: none Drug use: none - Family History Mother Hx Family Cardiac Disorders: Yes Father Hx Family Cancer: Yes - Gastrointestinal Gastrointestinal: Present: as per HPI - Constitutional Constitutional: as per HPI - EENT Eyes: as per HPI Ears: Present: as per HPI Nose, mouth and throat: Present: as per HPI - Cardiovascular Cardiovascular ROS: Present: as per HPI - Respiratory Respiratory IM: Present: as per HPI - Genitourinary Genitourinary: Absent: change in color, Urinary frequency - Neurological ROS Neurological GI: Present: as per HPI - Hematologic/Lymphatic Hematologic/Lymphatic pediatric: Present: as per HPI - Musculoskeletal Musculoskeletal ROS GI: Present: as per HPI - Integumentary Integumentary GI: Present: as per HPI - Psychiatric ROS Psychiatric GI: Present: as per HPI - Endocrine Endocrine IM: Present: as per HPI - Constitutional Vitals: Temp Pulse Resp BP Pulse Ox 97.7 F 82 16 120/65 97 03/30/18 10:47 03/30/18 10:47 03/30/18 10:47 03/30/18 10:47 03/30/18 10:47 General appearance: Present: cooperative, A&O X 3, no acute distress, answers questions appropriately - Head Head exam: Present: atraumatic, normocephalic - Eye Eye exam: Present: normal appearance, sclera anicteric - ENT ENT exam: Present: mucous membranes dry - Neck Neck exam general surgery: Present: normal inspection, trachea midline - Respiratory Respiratory exam: Present: CTAB. Absent: rales, rhonchi - Cardiovascular Cardiovascular exam: Present: RRR, +S1, +S2 - GI/Abdominal GI/Abdominal exam: Present: normal bowel sounds, soft, tenderness (Mild RUQ tenderness), no peritoneal signs. Absent: distended, firm, guarding - Rectal Rectal exam: Present: deferred - Extremities Exam Extremities exam: Present: warm - Neurological Exam Neurological exam: Present: no focal deficits - Psychiatric Psychiatric exam: Present: normal affect, normal mood - Skin Skin exam: Present: dry, intact, normal color, warm Results - Labs CBC & Chem 7: 03/30/18 02:46 03/30/18 02:46 Labs: Last Result Calcium 8.3 mg/dL (8.6-10.3) L 03/30/18 02:46 Entire Visit Hgb 11.3 g/dL (11.5-15.4) L 03/30/18 02:46 Hct 33.9 % (35.3-44.9) L 03/30/18 02:46 PT 10.9 Seconds (9.4-12.1) 03/29/18 04:18 Total Bilirubin 1.1 mg/dL (0.3-1.0) H 03/30/18 02:46 AST 234 Units/L (13-39) H 03/30/18 02:46 ALT 250 Units/L (7-52) H 03/30/18 02:46 Amylase 18 Units/L (29-103) L 03/30/18 02:46 Lipase 12 Units/L (11-82) 03/30/18 02:46 - ABG ABG results: PT/INR, D-dimer PT 10.9 Seconds (9.4-12.1) 03/29/18 04:18 - Impressions Impressions Abdomen MRI 03/29/18 09:32 IMPRESSION: Distended gallbladder with cholelithiasis, gallbladder wall thickening and extensive pericholecystic fluid. Findings are highly suggestive of acute cholecystitis. No evidence of biliary or pancreatic ductal abnormality. No evidence of choledocholithiasis. The findings were sent to the Radiology Results Communication Center at 2:06 pm on 03/29/2018to be communicated to a licensed caregiver. D/ / 03/29/2018 14:35:50 Jerry Lindsey MD / lilia Interpreting Provider: Jerry Lindsey MD Consult Discharge Plan - Plan Referrals: Mariaa Olivas, SCHOOL BUSINESS ADMINISTRATOR [Primary Care Provider] -
[2018-03-30] MEDS ORDERED: Piperacillin/Tazobactam 3.375 GM in 0.9 % Sodium Chloride Mini Bag 100 ML IVPB SCH (12:00)
[2018-03-30] MEDS ORDERED: *HR* FentaNYL (PF) 100 MCG/2 ML VIAL ONE (15:55)
[2018-03-30] MEDS ORDERED: *HR* Midazolam HCl 2 MG/2 ML VIAL ONE (15:55)
[2018-03-30] MEDS ORDERED: *HR* Propofol 200 MG/20 ML VIAL IVP ONE (15:55)
[2018-03-30] MEDS ORDERED: Lidocaine -MPF 2% 2 ML VIAL ONE (15:58)
[2018-03-30] MEDS ORDERED: Dexamethasone 4 MG/ML VIAL ONE (15:58)
[2018-03-30] MEDS ORDERED: Ondansetron 4 MG/2 ML VIAL ONE (15:58)
[2018-03-30] MEDS ORDERED: *HR* Rocuronium Bromide 50 MG/5 ML VIAL ONE (15:58)
[2018-03-30] MEDS ORDERED: Isovue-300 50 ML VIAL IVP ONE (16:17)
[2018-03-30] MEDS ORDERED: Neostigmine Methylsulfate 3 MG/3 ML SYRINGE ONE (16:17)
[2018-03-30] MEDS ORDERED: Bupivacaine/EPI 1:200k 0.5%PF 10 ML VIAL ONE (16:17)
[2018-03-30] MEDS ORDERED: Lidocaine -MPF 4% 5 ML AMPUL ONE (16:34)
[2018-03-30] MEDS ORDERED: *HR* OxyCODONE Immed Rel 5 MG TABLET PO PRN (16:50)
[2018-03-30] MEDS ORDERED: *HR* FentaNYL (PF) 100 MCG/2 ML VIAL IVP PRN (16:50)
[2018-03-30] MEDS ORDERED: Ondansetron 4 MG/2 ML VIAL IVP PRN ×3 (16:50→18:27)
--- NOTE | 2018-03-30 17:26 | Operative Note ---
Date of procedure: 03/30/18 Pre-op diagnosis: Acute cholecysitits, hyperbilirubinemia Post-op diagnosis: same Procedure: Laparoscopic cholecystectomy with intraoperative cholangiogram Anesthesia: JAC Surgeon: Mark Key Was there an minister assistant present: Yes Table Tender: Alberta Boyd Estimated blood loss (cc): 8 Specimen: gallbladder and contents Condition: stable Disposition: PACU Procedure in Detail: Date of surgery: 03/30/18 After properly identifying the patient, the patient was brought to the operating room placed in the supine position. After proper IV sedation was achieved followed by general endotracheal intubation, the patient's abdomen was prepped and draped in a normal sterile fashion. A timeout was performed noting the patient's name and type of procedure to be performed. Half percent Marcaine with epinephrine was used to anesthetize the epidermal and dermal layer and the super umbilical region. An 11 blade scalpel was then used to make an incision in the same area down to the rectus fascia. Once the rectus fascia was incised a 12 mm port was placed through the incision and the abdomen was insufflated with carbon dioxide. A laparoscopic camera was placed through the port which showed no injury to the intra-abdominal organs upon entry. A subxiphoid 5 mm port and a right subcostal margin 5 mm port were then placed under direct camera visualization after each of these areas were first infiltrated with half percent Marcaine solution. The patient was placed in a reverse Trendelenburg position and the gallbladder was noted to be distended and erythematous with edema, consistent with acute cholecystitis. The gallbladder was retracted superiorly and the peritoneal covering overlying the cystic duct and cystic artery were then carefully dissected away from the structures. The nontraumatic grasper was exchanged for a Nunes grasper and a laparoscopic clip was placed along the distal aspect of the cystic duct near the infundibulum. A cholangiocatheter was then introduced of the side-port of the Nunes grasper followed by making an incision proximal to the clip along the cystic duct. The cholangiogram catheter was then placed through the opening and secured with a laparoscopic clip. Intraoperative cholangiogram was performed which demonstrated flow into the common bile duct and small bowel and retrograde filling of the hepatic radicles with no evidence of a filling defect. The cholangiogram catheter was then removed and the cystic duct was formally clipped laparoscopic clips and incised laparoscopic scissors. The cystic artery was likewise clipped with laparoscopic clips and incised laparoscopic scissors. Bovie cauterization was used to dissect the gallbladder with the gallbladder fossa while maintain hemostasis. Once the gallbladder was detached it was removed from the abdomen via an Endobag. Reinspection of the right upper quadrant demonstrated maintenance of hemostasis and the right upper quadrant was irrigated with normal saline solution until the effluent was clear. All ports were then removed from the abdomen after the abdomen was desufflated. The rectus fascia for the supraumbilical incision was reapproximated with a [id number] 0 Vicryl suture. The subcutaneous tissue was reapproximated with an interrupted 3-0 Vicryl suture and the epidermal and dermal layers for the remaining incisions were closed with 4-0 Monocryl sutures. Needle, sponge, and instrument counts were correct 2 and the incisions were covered with Steri- Strips and Band-Aids. The patient was aroused from IV sedation, extubated in the operating room without complication, and transported to the recovery room stable condition.
[2018-03-30] MEDS ORDERED: OXYCODONE Oral CONC 10 MG/0.5 ML ORAL.SYG SL PRN (18:27)
[2018-03-30] MEDS ORDERED: Acetaminophen 325 MG TABLET PO PRN (18:27)
[2018-03-30] MEDS ORDERED: Naloxone 0.4 MG/ML INJ IVP PRN (18:27)
[2018-03-30] MEDS: OXYCODONE Oral CONC 10 MG/0.5 ML ORAL.SYG SL PRN (18:39)
[2018-03-30] MEDS: Ketorolac 15 MG/ML VIAL IVP PRN (18:39)
--- NOTE | 2018-03-30 18:46 | Anesthesia Evaluation Post Op ---
Date of Encounter: 03/30/18 Time of Encounter: 17:55 Notes: Patient's vital signs have been reviewed. Patient is stable postoperatively and has adequately recovered from anesthesia. Patient is determined to have stable airway patency and respiratory function including respiratory rate and oxygen saturation. Patient has a stable heart rate, blood pressure and adequate hydration. Patients mental status is acceptable. Patients temperature is appropriate. Pain and nausea are adequately controlled. - Discharge PostOp Status: Transfer Patient to floor
[2018-03-31] MEDS: OXYCODONE Oral CONC 10 MG/0.5 ML ORAL.SYG SL PRN (00:50)
[2018-03-31] MEDS: Piperacillin/Tazobactam 3.375 GM in 0.9 % Sodium Chloride Mini Bag 100 ML IVPB SCH (03:58)
[2018-03-31] MEDS: 0.9 % Sodium Chloride 1,000 ML IVC SCH (04:08)
[2018-03-31] MEDS: *HR* Heparin 5,000 UNIT/ML VIAL SQ SCH (06:02)
[2018-03-31 09:19] LABS: Basophils % 0.1 %; Hemoglobin 11.9 g/dL (11.5-15.4); Immature Granulocytes % 0.8 % (0-4); Lymphocytes # 1.4 K/mcL (0.6-4.6); Lymphocytes % 15.4 %; Mean Corpuscular HGB Conc 33.1 g/dL (31.6-35.5); Mean Corpuscular Hemoglobin 29.7 pg (28.0-33.3); Mean Corpuscular Volume 89.8 fL (83.0-100.0); Mean Platelet Volume 11.3 fL (9.4-12.4); Monocytes # 0.3 K/mcL (0.0-1.3); Monocytes % 3.5 %; Neutrophils # 7.5 K/mcL (1.6-8.9); Platelet Count 243 K/mcL (140-400); Red Blood Count 4.01 M/mcL (3.82-4.97); Red Cell Distribution Width 14.6 % (11.5-14.5); Segmented Neutrophils % 80.2 %
[2018-03-31 09:42] LABS: Alanine Aminotransferase 185 Units/L (7-52); Albumin 3.7 g/dL (3.5-5.7); Albumin/Globulin Ratio 1.3 (1.1-2.2); Alkaline Phosphatase 188 Units/L (34-104); Aspartate Amino Transferase 106 Units/L (13-39); BUN/Creatinine Ratio 14 (6-26); Bilirubin,Direct 0.3 mg/dL (0.0-0.2); Bilirubin,Indirect 0.3 mg/dL (0.0-1.2); Bilirubin,Total 0.6 mg/dL (0.3-1.0); Blood Urea Nitrogen 10 mg/dL (6-20); Calcium 8.4 mg/dL (8.6-10.3); Carbon Dioxide 21 mEq/L (23-29); Chloride 108 mEq/L (98-107); Globulin 2.9 g/dL (2.4-3.5); Glucose 121 mg/dL (70-105); Osmolality,Calculated 290 (280-300); Potassium 3.5 mEq/L (3.5-5.1); Sodium 140 mEq/L (136-145); Total Protein 6.6 g/dL (6.4-8.9); eGFR For African Americans > 60 (> 60); eGFR For Non-African Americans > 60 (> 60)
--- NOTE | 2018-03-31 09:44 | General Surgery Progress Note ---
<Chas Xie R - Last Filed: 03/31/18 10:10> Date of Encounter: 03/31/18 Time of Encounter: 10:10 - Assessment and Plan (1) Acute cholecystitis Current Visit: Yes Status: Acute POD #1 s/p laparoscopic cholecystectomy with intraoperative cholangiogram with Dr. Kye Pt tolerating clears - advance to regular diet Afebrile, no leukocytosis. Incision C/D/I PLAN: Ibuprofen, Percocet, Colace, Zofran, and Augmentin BID x3 days Pt can be discharged from a surgical standpoint Follow-up at out-patient on April 08 Subjective Patient reports: no new complaints, feels better, pain is less, tolerating liquids well, voiding w/o difficulty, flatus, afebrile Narrative: Pt doing well with no complaints. Pain is mild. Tolerating clear liquids, no N/ V. Objective Vital Signs - Last 8 Hours Temp Pulse Resp BP Pulse Ox 03/31/18 04:00 98.7 F 65 16 105/59 94 Intake and Output 03/30/18 03/31/18 03/31/18 23:59 07:59 15:59 Intake Total 100 / 100 1100 / 1100 Output Total Balance 92 / 92 1100 / 1100 Intake: IV Fluids 100 / 100 1100 / 1100 0.9 % Sodium Chloride 1,000 ML 1000 / 1000 @ 125 mls/hr IVC .Q8H SHANNON Rx#: [id number] Zosyn 3.375 GM In 0.9 % Sodium 100 / 100 100 / 100 Chloride (Mini-Bag +) 100 ML @ 25 mls/hr IVPB Q8H SHANNON Rx#: [id number] Output: Estimated Blood Loss Other: Meal NPO # Voids 1 - General physical appearance well developed, well nourished, no distress - Eyes normal ocular movement - Respiratory normal expansion, normal respiratory effort, clear to auscultation - Cardiovascular Cardiovascular exam: Present: RRR, no murmurs/rubs/gallops - Abdomen Abdomen: Present: bowel sounds present, soft, tender (appropriately). Absent: distended, guarding, rebound, rigid - Incision Incision: Present: clean and dry, intact - Integumentary no rash, no growths, no abnormal pigmentation - Neurologic CN 2-12 grossly intact, normal coordination - Psychiatric oriented to time, oriented to person, oriented to place, speech is normal, memory intact - Labs 03/31/18 08:46 03/31/18 08:46 - VTE Documentation of Mechanical Device: Intermittent pneumatic compression device Consult Discharge Plan - Plan Instructions: Laparoscopic Cholecystectomy (DC) Additional Instructions: General Surgical Discharge Instructions 1. No pushing, pulling, or lifting greater than 15 lbs for 2-4 weeks. 2. You may shower beginning today, but no tub baths, soaking, or swimming for 2 weeks. 3. You may resume driving when you are off narcotics and are safe to react in a car. 4. Take ibuprofen every 8 hours for discomfort. If this does not relieve discomfort, you may take the as needed Percocet. Take narcotics as directed. Do not take more narcotics then directed and do not share your narcotics with any other person. Do not drink alcohol while on narcotics. 5. Take stool softeners (Colace) or a water based laxative (Miralax) while taking narcotics. You may hold for loose stools. 6. Report any fevers greater than 100.5F, increase abdominal discomfort, drainage that looks like pus, increased redness or pain at the surgical site, or any vomiting. 7. Report any pain in the calves, shortness of breath, or rapid heartbeat. 8. Follow-up in the office as directed: April 08, 2018 at 9:00 AM 9. Tale Augmentin as prescribed for 3 days. Referrals: Nona Wright ADDICTION SPECIALIST [Advanced Practice Nurse] - 04/08/18 9:00 am Prescriptions: Ondansetron ODT [Zofran ODT] 4 mg SL Q6HR #15 tab.rapdis OxyCODONE/APAP 7.5/325 [Percocet 7.5/325 MG] 1 each PO Q6HR PRN 7 Days #26 tablet PRN Reason: Pain Amoxicillin/Clavulanate [Augmentin] 875 mg PO BIDWM #9 tablet Docusate [Colace] 100 mg PO BID #30 capsule Ibuprofen 800 mg PO TID #42 tablet <Mark Key - Last Filed: 03/31/18 12:17> Date of Encounter: 03/31/18 Objective Vital Signs - Last 8 Hours Temp Pulse Resp BP Pulse Ox 03/31/18 10:53 98.2 F 62 16 122/80 97 Intake and Output 03/30/18 03/31/18 03/31/18 23:59 07:59 15:59 Intake Total 100 / 100 1100 / 1100 580 / 580 Output Total Balance 92 / 92 1100 / 1100 580 / 580 Intake: IV Fluids 100 / 100 1100 / 1100 100 / 100 0.9 % Sodium Chloride 1,000 ML 1000 / 1000 @ 125 mls/hr IVC .Q8H SHANNON Rx#: [id number] Zosyn 3.375 GM In 0.9 % Sodium 100 / 100 100 / 100 100 / 100 Chloride (Mini-Bag +) 100 ML @ 25 mls/hr IVPB Q8H SHANNON Rx#: [id number] Oral 480 / 480 Output: Estimated Blood Loss Other: Meal NPO Breakfast # Voids 1 - Labs 03/31/18 08:46 03/31/18 08:46 Diabetes panel 03/31/18 Range/Units 08:46 Sodium 140 (136-145) mEq/L Potassium 3.5 (3.5-5.1) mEq/L Chloride 108 H (98-107) mEq/L Carbon Dioxide 21 L (23-29) mEq/L BUN 10 (6-20) mg/dL Creatinine 0.69 (0.60-1.20) mg/dL Glucose 121 H (70-105) mg/dL Calcium 8.4 L (8.6-10.3) mg/dL AST 106 H (13-39) Units/L ALT 185 H (7-52) Units/L Alkaline Phosphatase 188 H (34-104) Units/L Albumin 3.7 (3.5-5.7) g/dL Calcium panel 03/31/18 Range/Units 08:46 Calcium 8.4 L (8.6-10.3) mg/dL Albumin 3.7 (3.5-5.7) g/dL Pituitary panel 03/31/18 Range/Units 08:46 Sodium 140 (136-145) mEq/L Potassium 3.5 (3.5-5.1) mEq/L Chloride 108 H (98-107) mEq/L Carbon Dioxide 21 L (23-29) mEq/L BUN 10 (6-20) mg/dL Creatinine 0.69 (0.60-1.20) mg/dL Glucose 121 H (70-105) mg/dL Calcium 8.4 L (8.6-10.3) mg/dL Adrenal panel 03/31/18 Range/Units 08:46 Sodium 140 (136-145) mEq/L Potassium 3.5 (3.5-5.1) mEq/L Chloride 108 H (98-107) mEq/L Carbon Dioxide 21 L (23-29) mEq/L BUN 10 (6-20) mg/dL Creatinine 0.69 (0.60-1.20) mg/dL Glucose 121 H (70-105) mg/dL Calcium 8.4 L (8.6-10.3) mg/dL Total Bilirubin 0.6 (0.3-1.0) mg/dL AST 106 H (13-39) Units/L ALT 185 H (7-52) Units/L Alkaline Phosphatase 188 H (34-104) Units/L Albumin 3.7 (3.5-5.7) g/dL - Attending Attestation I examined this patient and my medical decision-making was reviewed with the Resident Physician. I agree with the documented findings, disposition and treatment plan as described except to the extent set forth below. I reviewed the above assessment and evaluation and agree with the above plan. From a surgical standpoint she can be discharged home and will make certain she has a follow-up to see us in the office.
[2018-03-31] MEDS: Ketorolac 15 MG/ML VIAL IVP PRN (10:17)
--- NOTE | 2018-03-31 10:51 | Discharge Summary ---
<Liam Canchola - Last Filed: 03/31/18 10:48> - NOTES TO OUTPATIENT PROVIDER Notes to Outpatient Provider: Pathology on gallbladder pending Orders not resulted at time of discharge: Pending orders 03/30/18 17:07 Surgical Pathology [PTH] Routine Date of Encounter: 03/31/18 Time of Encounter: 10:48 - Discharge Diagnosis (1) Biliary colic Priority: Primary Status: Acute (2) HTN (hypertension) Priority: Secondary Status: Chronic Qualifiers: Hypertension type: essential hypertension Qualified Code(s): I10 - Essential (primary) hypertension (3) Leukocytosis Priority: Secondary Status: Resolved Qualifiers: Leukocytosis type: unspecified Qualified Code(s): D72.829 - Elevated white blood cell count, unspecified (4) Cholelithiasis Priority: Primary Status: Acute Qualifiers: Cholelithiasis location: gallbladder Cholecystitis presence: without cholecystitis Biliary obstruction: without biliary obstruction Qualified Code(s): K80.20 - Calculus of gallbladder without cholecystitis without obstruction Hospital course: Ms. Negrete is a 53 year old female with history of hypertension who presented with right upper quadrant pain and nausea and vomiting particularly after eating food. Laboratory evaluation revealed hyperbilirubinemia with transaminitis. Hepatobiliary scan was consistent with acute cholecystitis. On 03/30/2018 patient underwent laparoscopic cholecystectomy with successful removal of her gallbladder. The following day she stated she felt much better and was tolerating food well. She will be discharged home in stable condition. Discharge discussed with: patient, nurse - Time Spent with Patient Total time spent providing and/or coordinating discharge services: Greater than 30 minutes - Discharge Medications Prescriptions: Ondansetron ODT [Zofran ODT] 4 mg SL Q6HR #15 tab.rapdis OxyCODONE/APAP 7.5/325 [Percocet 7.5/325 MG] 1 each PO Q6HR PRN 7 Days #26 tablet PRN Reason: Pain Amoxicillin/Clavulanate [Augmentin] 875 mg PO BIDWM #9 tablet Docusate [Colace] 100 mg PO BID #30 capsule Ibuprofen 800 mg PO TID #42 tablet Home Medications: Lisinopril [Zestril] 10 mg PO DAILY 11/21/15 [History] hydroCHLOROthiazide [Hydrochlorothiazide] 25 mg PO DAILY 11/21/15 [History] Amoxicillin/Clavulanate [Augmentin] 875 mg PO BIDWM #9 tablet 03/31/18 [Rx] Docusate [Colace] 100 mg PO BID #30 capsule 03/31/18 [Rx] Ibuprofen 800 mg PO TID #42 tablet 03/31/18 [Rx] Ondansetron ODT [Zofran ODT] 4 mg SL Q6HR #15 tab.rapdis 03/31/18 [Rx] OxyCODONE/APAP 7.5/325 [Percocet 7.5/325 MG] 1 each PO Q6HR PRN 7 Days #26 tablet 03/31/18 [Rx] Allergies/Adverse Reactions: 3 Allergy/AdvReac Type Severity Reaction Status Date / Time No Known Allergies Allergy Verified 11/21/15 05:59 Date of admission: 03/28/18 22:29 Primary care physician: Mariaa Olivas CNP Consults: 03/29/18 11:29 Consult to Gastroenterology [CONS] Routine Consulting Provider: Gastroenterology Shahana Reason for Consult: RUQ pain, US suggestive of CBD dilation, radiology suggesting ERCP. Spoke to Liam isaacs. Call Completed: Yes Discharging clinician: Liam Canchola Anticipated date of discharge: 03/31/18 - Constitutional Vitals: Temp Pulse Resp BP Pulse Ox 98.7 F 65 16 105/59 94 03/31/18 04:00 03/31/18 04:00 03/31/18 04:00 03/31/18 04:00 03/31/18 04:00 General appearance: Present: cooperative, A&O X 3, no acute distress, answers questions appropriately - Respiratory Respiratory exam: Present: CTAB. Absent: rales, rhonchi, wheezes - Cardiovascular Cardiovascular exam: Present: RRR. Absent: gallop, rubs, systolic murmur - GI/Abdominal GI/Abdominal exam: Present: normal bowel sounds, soft. Absent: distended, tenderness Additional comments: Surgical incisions with dressings present, dressings clean dry and intact - Extremities Exam Extremities exam: Present: warm. Absent: pedal edema, tenderness - Neurological Exam Neurological exam: Present: alert, CN II-XII intact, oriented X3, no focal deficits - Patient Status Disposition: Home, Self-Care Condition: Good Functional capacity at discharge: independent ambulation Overall status at discharge: patient is back to baseline - Discharge Instructions Instructions: Laparoscopic Cholecystectomy (DC) Follow Up With: Nona Wright CNP [Advanced Practice Nurse] - 04/08/18 9:00 am Forms: Work/School Release Additional Instructions: General Surgical Discharge Instructions 1. No pushing, pulling, or lifting greater than 15 lbs for 2-4 weeks. 2. You may shower beginning today, but no tub baths, soaking, or swimming for 2 weeks. 3. You may resume driving when you are off narcotics and are safe to react in a car. 4. Take ibuprofen every 8 hours for discomfort. If this does not relieve discomfort, you may take the as needed Percocet. Take narcotics as directed. Do not take more narcotics then directed and do not share your narcotics with any other person. Do not drink alcohol while on narcotics. 5. Take stool softeners (Colace) or a water based laxative (Miralax) while taking narcotics. You may hold for loose stools. 6. Report any fevers greater than 100.5F, increase abdominal discomfort, drainage that looks like pus, increased redness or pain at the surgical site, or any vomiting. 7. Report any pain in the calves, shortness of breath, or rapid heartbeat. 8. Follow-up in the office as directed: April 08, 2018 at 9:00 AM 9. Tale Augmentin as prescribed for 3 days. - Diet and Activity Activity: increase activity as tolerated Diet: low fat, low cholesterol - VTE Documentation of Mechanical Device: Intermittent pneumatic compression device <Alana Cavazos - Last Filed: 03/31/18 13:50> Orders not resulted at time of discharge: Pending orders 03/30/18 17:07 Surgical Pathology [PTH] Routine Date of Encounter: 03/31/18 - Discharge Diagnosis (1) Biliary colic Status: Acute (2) HTN (hypertension) Status: Chronic Qualifiers: Hypertension type: essential hypertension Qualified Code(s): I10 - Essential (primary) hypertension (3) Leukocytosis Status: Resolved Qualifiers: Leukocytosis type: unspecified Qualified Code(s): D72.829 - Elevated white blood cell count, unspecified (4) Cholelithiasis Status: Acute Qualifiers: Cholelithiasis location: gallbladder Cholecystitis presence: without cholecystitis Biliary obstruction: without biliary obstruction Qualified Code(s): K80.20 - Calculus of gallbladder without cholecystitis without obstruction Hospital course: Ms. Negrete is a 53 year old female - Time Spent with Patient Total time spent providing and/or coordinating discharge services: Date of admission: 03/28/18 22:29 Primary care physician: Mariaa Olivas CNP Consults: 03/29/18 11:29 Consult to Gastroenterology [CONS] Routine Consulting Provider: Gastroenterology Shahana Reason for Consult: RUQ pain, US suggestive of CBD dilation, radiology suggesting ERCP. Spoke to Liam isaacs. Call Completed: Yes - Constitutional Vitals: Temp Pulse Resp BP Pulse Ox 98.2 F 62 16 122/80 97 03/31/18 10:53 03/31/18 10:53 03/31/18 10:53 03/31/18 10:53 03/31/18 10:53 - Attending Attestation I examined this patient and my medical decision-making was reviewed with the Resident Physician Dr. Canchola. I agree with the documented findings, disposition and treatment plan as described except to the extent set forth below. Ms. Negrete is a 53 year old female with history of hypertension who presented to the ED with complaints of right upper quadrant pain that has been going on for about a week or so. Worse with food. Gen: A, A, O x 3 Chest: Diminished BS b/l Abd: Soft, RUQ tenderness a/p 1. Acute cholecystitis 2. Obstructive Jaundice 3. Cholelithiasis reviewed MRI of Abd showed cholecystitis .. No evidence of ductal dilation s/p Lap cholecystectomy Pt has been tolerating PO intake well PO Abx Augmentin as per surgery recommendations Medically stable to d/c home
[2018-03-31 10:54] VITALS: BP 122/80
== END 2018-03-31 13:32 | disposition home or self-care (01) ==
LOC: EMEROO 19:53 → 3ANU 19:53 → SUATTDRO 22:29 → 3ANU 23:27
PROVIDERS: ADMIT Internal Medicine; ATTEND Family Medicine